=== PATIENT | female | born 1995 | race Asian ===

== ENCOUNTER 2019-02-06 00:28 | Emergency (ER) | payer OTHER ==
[2019-02-06] MEDS ORDERED: NS 0.9% 1000 ML** 1,000 ML IV ONE (01:47)
[2019-02-06 01:59] LABS: ABS Eosinophils 0.1 10^3/ul (0-0.6); ABS Lymphocytes 1.8 10^3/ul (1.0-4.8); ABS Monocytes 0.4 10^3/ul (0-0.8); ABS Neutrophils 3.4 10^3/ul (1.5-7.7); Eosinophil % 1.4 %; Hematocrit 39 % (35-47); Hemoglobin 13.1 g/dL (12.0-16.0); Lymphocyte % 31.3 %; Mean Corpuscular HGB Conc 34 g/dL (31-36); Mean Corpuscular Hemoglobin 30 pg (27-31); Mean Corpuscular Volume 87 fL (80-97); Platelet Count 209 10^3/uL (150-450); Red Blood Count 4.43 10^6 /uL (3.70-4.87); Red Cell Distribution Width 13 % (10-15); White Blood Count 5.7 10^3/uL (3.5-10.8)
--- NOTE | 2019-02-06 02:05 | ED ---
GI/ HPI - HPI Summary HPI Summary: 23-year-old female presents with blood in stool today. She states she had a couple episodes of this. She started after she was having a bowel movement. She was not straining when it occurred. Denies any diarrhea. No mucus in stool. No nausea or vomiting. No abdominal pain. No urinary symptoms. Never had this before. No family history of ulcerative colitis or Crohn's. Has no medical conditions. No recent travel. has not been on antibiotic recently. - History of Current Complaint Chief Complaint: EDGIBleed Time Seen by Provider: 02/06/19 01:34 Stated Complaint: BLOOD IN STOOL PER PT Pain Intensity: 0 - Allergy/Home Medications Allergies/Adverse Reactions: Allergies Allergy/AdvReac Type Severity Reaction Status Date / Time No Known Allergies Allergy Verified 02/06/19 00:31 PMH/Surg Hx/FS Hx/Imm Hx Endocrine/Hematology History: Denies: Hx Anticoagulant Therapy Respiratory History: Denies: Hx Asthma Infectious Disease History: No Infectious Disease History: Denies: Traveled Outside the [place] in Last 30 Days - Family History Known Family History: Positive: Non-Contributory - Social History Alcohol Use: None Substance Use Type: Reports: None Smoking Status (MU): Never Smoked Tobacco Review of Systems Negative: Fever Negative: Chest Pain Negative: Shortness Of Breath Positive: Other - blood in stool. Negative: Abdominal Pain, Vomiting, Diarrhea , Nausea All Other Systems Reviewed And Are Negative: Yes Physical Exam Triage Information Reviewed: Yes Vital Signs On Initial Exam: Initial Vitals Temp Pulse Resp BP Pulse Ox 98 F 86 15 172/73 100 02/06/19 00:30 02/06/19 00:30 02/06/19 00:30 02/06/19 00:30 02/06/19 00:30 Vital Signs Reviewed: Yes Appearance: Positive: Well-Appearing Skin: Positive: Warm, Dry Head/Face: Positive: Normal Head/Face Inspection Eyes: Positive: Normal, Conjunctiva Clear ENT: Positive: Pharynx normal Respiratory/Lung Sounds: Positive: Clear to Auscultation, Breath Sounds Present Cardiovascular: Positive: Normal, RRR Abdomen Description: Positive: Nontender, Soft, Other: - hemorrhoid external present, blood on rectal exam Bowel Sounds: Positive: Present Musculoskeletal: Positive: Normal Neurological: Positive: Normal Psychiatric: Positive: Normal Procedures - Sedation Patient Received Moderate/Deep Sedation with Procedure: No Diagnostics - Vital Signs Vital Signs Temp Pulse Resp BP Pulse Ox 02/06/19 01:45 107/75 02/06/19 01:39 78 99 02/06/19 01:15 73 112/78 99 02/06/19 00:30 98 F 86 15 172/73 100 - Laboratory Lab Results: Lab Results 02/06/19 Range/Units 01:50 WBC 5.7 (3.5-10.8) 10^3/uL RBC 4.43 (3.70-4.87) 10^6 /uL Hgb 13.1 (12.0-16.0) g/dL Hct 39 (35-47) % MCV 87 (80-97) fL MCH 30 (27-31) pg MCHC 34 (31-36) g/dL RDW 13 (10-15) % Plt Count 209 (150-450) 10^3/uL MPV 9.0 (7.4-10.4) fL Neut % (Auto) 60.1 % Lymph % (Auto) 31.3 % [place] % (Auto) 6.7 % Eos % (Auto) 1.4 % Baso % (Auto) 0.5 % Absolute Neuts (auto) 3.4 (1.5-7.7) 10^3/ul Absolute Lymphs (auto) 1.8 (1.0-4.8) 10^3/ul Absolute Monos (auto) 0.4 (0-0.8) 10^3/ul Absolute Eos (auto) 0.1 (0-0.6) 10^3/ul Absolute Basos (auto) 0.0 (0-0.2) 10^3/ul Absolute Nucleated RBC 0.0 10^3/ul Nucleated RBC % 0.0 Result Diagrams: 02/06/19 01:50 02/06/19 01:50 Lab Statement: Any lab studies that have been ordered have been reviewed, and results considered in the medical decision making process. Re-Evaluation - Re-Evaluation First Eval Re-Evaluation Time: 02:15 Comment: wants to go home [facility] Course/Dx - Course Course Of Treatment: 23-year-old female presents with blood in stool today. She states she had a couple episodes of this. She started after she was having a bowel movement. She was not straining when it occurred. Denies any diarrhea. No mucus in stool. No nausea or vomiting. No abdominal pain. No urinary symptoms. Never had this before. No family history of ulcerative colitis or Crohn's. Has no medical conditions. No recent travel. has not been on antibiotic recently. on exam nontender abd. hemorrhoid noted with no bleeding. has gross blood on rectal. Vitals are stable and rhythm. h/h normal. discussed will have follow up with GI if continues. patient understand and agrees with plan. - Diagnoses Provider Diagnoses: Rectal bleed Discharge ED - Sign-Out/Discharge Documenting (check all that apply): Patient Departure - Discharge Plan Condition: Good Disposition: HOME Patient Education Materials: Rectal Bleeding (ED) Forms: *School Release Referrals: No Primary Care Phys,NOPCP [Primary Care Provider] - Puma Rogers MD [Medical Doctor] - Additional Instructions: take miralax if have issues with constipation follow up with GI if continue to have issues with bleeding Return to ED if develop any new or worsening symptoms - Billing Disposition and Condition Condition: GOOD Disposition: Home
[2019-02-06 02:17] LABS: ALT 13 U/L (7-52); AST 19 U/L (13-39); Albumin 4.5 g/dL (3.2-5.2); Albumin/Globulin Ratio 1.4 (1-3); Alkaline Phosphatase 76 U/L (34-104); Anion Gap 8 mmol/L (2-11); BUN/Creatinine Ratio 25.4 (8-20); Blood Urea Nitrogen 15 mg/dL (6-24); C Reactive Protein < 1.00 mg/L (<8.01); CO2 Carbon Dioxide 22 mmol/L (22-32); Calcium 9.5 mg/dL (8.6-10.3); Chloride 109 mmol/L (101-111); EGFR African American 151.5 (>60); EGFR Non-African American 125.2 (>60); Globulin 3.2 g/dL (2-4); Glucose 96 mg/dL (70-100); Potassium 3.7 mmol/L (3.5-5.0); Sodium 139 mmol/L (135-145); Total Protein 7.7 g/dL (6.4-8.9)
[2019-02-06 02:19] LABS: Urine Appearance Clear; Urine Bacteria Absent (Absent); Urine Bilirubin Negative (Negative); Urine Blood 2+ (Negative); Urine Color Yellow; Urine Glucose Negative (Negative); Urine Ketones Negative (Negative); Urine Nitrite Negative (Negative); Urine Protein Negative (Negative); Urine Red Blood Cell 2+(6-10/hpf) (Absent); Urine Specific Gravity 1.013 (1.010-1.030); Urine Squamous Epithelial Cell Present (Absent); Urine Urobilinogen Negative (Negative); Urine White Blood Cell Trace(0-5/hpf) (Absent)
[2019-02-06 02:22] LABS: HCG Pregnancy < 0.60 mIU/mL
[2019-02-06 03:30] VITALS: BP 102/58
== END 2019-02-06 02:25 | disposition home or self-care (01) ==
LOC: ED 00:28
DX: K62.5 Hemorrhage of anus and rectum (principal)
CPT/HCPCS: 36415; 80053; 81003; 81015; 82272; 83605; 83690; 84702; 85025; 86140; 86850; 86900; 86901; 87086; 99282